=== PATIENT | female | born 1980 | race Hispanic/Latino ===

== ENCOUNTER 2016-06-14 15:43 | Emergency (ER) | payer MEDICAID ==
[2016-06-14 15:44] VITALS: BMI 35.7
[2016-06-14 16:44] VITALS: RESP 18
[2016-06-14] MEDS ORDERED: Sodium Chloride 0.9% 1,000 ML IV ONE (17:02)
[2016-06-14] MEDS ORDERED: Vancomycin 1 gm/NS 200 ml 200 ML IVPB STA (17:03)
[2016-06-14] MEDS ORDERED: Silver Sulfadiazine 1% Cream (20 gm) TOP STA (17:03)
--- NOTE | 2016-06-14 17:05 | C.PDOC ---
History Of Present Illness 35 yr old female presents to the ER for evaluation of a thermal burn to the left elbow sustained 10 days ago. Patient states she "touched a radiator", has been applying silvadene cream at home with no improvement. Patient denies fever , chills, chest pain, SOB, nausea, vomiting, Left arm weakness, sensory or vascular deficits. AMbulate to ED for evaluation, appear in pain. Time Seen by Provider: 06/14/16 16:50 Chief Complaint (Nursing): Burn History Per: Patient History/Exam Limitations: no limitations Injury Occurred (Timing): Days Ago: (10) Type Of Burn (Context): Radiator Past Medical History Reviewed: Historical Data, Nursing Documentation, Vital Signs Vital Signs: Last Vital Signs Temp 97.6 F 06/14/16 20:03 Pulse 80 06/14/16 20:03 Resp 18 06/14/16 20:03 BP 110/75 06/14/16 20:03 Pulse Ox 100 06/14/16 21:00 - Medical History PMH: Anxiety, Asthma, Back Problems, Bronchitis, Depression, Pneumonia, Post Traumatic Stress Disorder, Seizures - [facility] Procedures APPLICATION OF SPLINT (09/19/14) VACCINATION NEC (11/04/13) Family History: States: No Known Family Hx - Social History Hx Tobacco Use: Yes Hx Alcohol Use: No Hx Substance Use: No - Immunization History Hx Tetanus Toxoid Vaccination: No Hx Influenza Vaccination: Yes Hx Pneumococcal Vaccination: No Review Of Systems Except As Marked, All Systems Reviewed And Found Negative. Constitutional: Negative for: Fever, Chills Cardiovascular: Negative for: Chest Pain Respiratory: Negative for: Shortness of Breath Gastrointestinal: Negative for: Nausea, Vomiting Musculoskeletal: Negative for: Shoulder Pain, Arm Pain, Back Pain Skin: Positive for: Other (Thermal burn to the left elbow.) Neurological: Negative for: Weakness, Numbness Physical Exam - Physical Exam Appears: Well, No Acute Distress Skin: Normal Color, Warm, Dry, No Rash, Other (Left distal humerus over triceps area linear open wounds 8-9 cm length covered yellowish scab with surrounding erythema. NO peroximal streaking.) Eye(s): bilateral: Normal Inspection Nose: Normal, No Discharge Oral Mucosa: Moist Throat: Normal, No Erythema, No Exudate, No Drooling Neck: Normal, Normal ROM, Supple Cardiovascular: Rhythm Regular Respiratory: Normal Breath Sounds Gastrointestinal/Abdominal: Normal Exam, Soft, No Tenderness, No Distention, No Guarding Back: Normal Inspection, No CVA Tenderness Extremity: Normal ROM (mild discmfort Right elbow flexion/extension due to pain) , Tenderness (Right elbow with mild joint effusion. Warmth to touch.), No Deformity Extremity: Bilateral: Atraumatic Neurological/Psych: Oriented x3, Normal Speech, Normal Motor, Normal Sensation, Normal Reflexes ED Course And Treatment - Laboratory Results Result Diagrams: 06/14/16 17:53 06/14/16 17:53 Lab Interpretation: No Acute Changes O2 Sat by Pulse Oximetry: 100 Pulse Ox Interpretation: Normal Medical Decision Making Medical Decision Making: PLAN: * CBC * HCG Urine * Urinalysis * Silvadene TOP * Tetanus IM * Toradol IVP * Vancomycin IVPB * Sodium Chloride IV ED OBSERVATION Discharge: Yes Date of observation admission: 06/14/16 Time of observation admission: 17:00 - Observation admission statement Patient is being placed in observation because:: Left upper arm thermal burn, open wound, cellulitis - Goals of Observation Goals of observation are:: Diagnostics, analgesics, abx tx - Progress Note Progress Note: 06/14/16 At 17:10, pt resting comfortable in bed, not in any apparent distress. Pt was evaluated by ED attending. ABx, hydration, blood work pending. At 19:03, blood work review, no leukocytosis or any other acute abnormalities noted. Vancomycin, Zosyn- in process. pt tolerate well. At 20:58, pt reports moderate improvement in pain. AFebrile, hemodynamicalys table. LUE: FAROM, no neurovascular deficits. Neurologicaly intact. Pt was offered admission due to open wound s/p thermal burn second degrees, cellulitis. Pt refused admission at present time, preferred to F/U with PMD tomorrow and Burn center. Case discussed with pt's PMD and outpt f/u scheduled. Pt was advised on course of ds, wound care.Pt advised on sign of septic joint. Ref. to F/U with [facility] in 1-2 days and PMD for re-evaluation and further tx. Return if any worsening or new changes. Disposition Counseled Patient/Family Regarding: Studies Performed, Diagnosis, Need For Followup, Rx Given - Disposition Referrals: Priti Hansen MD [Staff Provider] - Disposition: HOME/ ROUTINE Disposition Time: 21:00 Condition: STABLE Additional Instructions: FOLLOW UP WITH [facility] IN 1-2 DAYS FOR RE-EVALUATION AND FURTHER TREATMENT. CHANGE XEROFORM DRESSING DAILY TAKE ANTIBIOTIC PRESCRIBED FOLLOW UP WITH PMD IN 2-3 DAYS FOR RE-EVALUATION WELL. [facility] [address], [place] [phone] [facility] [address] [id number] Prescriptions: Clindamycin [Cleocin] 300 mg PO Q6 #28 cap traMADol [Ultram] 50 mg PO TID #7 tab Instructions: Cellulitis (ED), Second Degree Burn (ED) - Clinical Impression Clinical Impression: Second degree burn, Cellulitis - PA / GIRL FRIDAY / Resident Statement MD/DO has reviewed & agrees with the documentation as recorded. - Scribe Statement The provider has reviewed the documentation as recorded by the Scribe Trudy Choi All medical record entries made by the Scribe were at my direction and personally dictated by me. I have reviewed the chart and agree that the record accurately reflects my personal performance of the history, physical exam, medical decision making, and the department course for this patient. I have also personally directed, reviewed, and agree with the discharge instructions and disposition.
[2016-06-14 18:01] LABS: CHLORIDE 95 mmol/L (98-107); POTASSIUM 3.4 mmol/L (3.6-5.2); SODIUM 137 mmol/L (132-148)
[2016-06-14 18:04] LABS: BLOOD UREA NITROGEN 17 mg/dL (7-17); CARBON DIOXIDE 26 mmol/L (22-30); GFR AFRICAN-AMERICAN > 60; GLUCOSE,RANDOM 65 mg/dL (65-105)
[2016-06-14 18:05] LABS: BASO # 0.1 K/uL (0.0-0.2); BASO % 0.5 % (0.0-2.0); CALCIUM 9.1 mg/dl (8.6-10.4); EOS # 0.3 K/uL (0.0-0.7); EOS % 2.4 % (0.0-4.0); HEMATOCRIT 38.3 % (34.0-47.0); LYMPH % 27.3 % (20.0-40.0); MEAN CELL VOLUME 89.4 fL (81.0-99.0); MEAN CORPUSCULAR HEMOGLOBIN 29.4 pg (27.0-31.0); MEAN CORPUSCULAR HGB CONC 32.9 g/dL (33.0-37.0); MEAN PLATELET VOLUME 8.7 fL (7.2-11.7); MONO # 0.8 K/uL (0.0-0.8); MONO % 7.2 % (0.0-10.0); RED CELL DISTRIBUTION WIDTH 14.3 % (11.5-14.5); WHITE BLOOD COUNT 11.1 K/uL (4.8-10.8)
[2016-06-14 18:09] LABS: RBC URINE 3 /hpf (0-3); URINE BACTERIA RARE (<OCC); URINE BILIRUBIN NEGATIVE (NEGATIVE); URINE BLOOD 1+ (NEGATIVE); URINE COLOR Yellow (YELLOW); URINE GLUCOSE (UA) NORMAL (Normal); URINE KETONE NEGATIVE (NEGATIVE); URINE LEUKOCYTE ESTERASE 2+ Leu/uL (Negative); URINE PROTEIN NEGATIVE (NEGATIVE); URINE UROBILINOGEN NORMAL mg/dL (0.2-1.0); WBC URINE 7 /hpf (0-5)
[2016-06-14] MEDS ORDERED: Silver Sulfadiazine 1% Cream (20 gm) ONE (18:38)
[2016-06-14 21:25] VITALS: BP 124/72; PULSE 75; TEMP 98.2
[2016-06-14 21:38] VITALS: O2SAT 100
== END 2016-06-14 21:25 | disposition home or self-care (01) ==
LOC: C.ER 15:43
DX: T22.232A Burn of second degree of left upper arm, initial encounter (principal); X16.XXXA Contact with hot heating appliances, radiators and pipes, initial encounter; L03.114 Cellulitis of left upper limb
CPT/HCPCS: 80048; 81001; 84703; 85025; 87040; 90471; 90715; 96361; 96365; 96375; 99285; J1885; J2270; J3370; J7040

== ENCOUNTER 2016-08-31 19:57 | Emergency (ER) | payer MEDICAID ==
[2016-08-31 19:57] VITALS: BMI 35.7
[2016-08-31 20:25] VITALS: TEMP 98.2
--- NOTE | 2016-08-31 20:38 | C.PDOC ---
History Of Present Illness 35 y/o female presents to the ED with complaints of foul smelling urine worsening over the past week with associated increased frequency and dysuria. Pt also notes hematuria today. Denies fever, chills, nausea, vomiting or any other complaints. Time Seen by Provider: 08/31/16 20:27 Chief Complaint (Nursing): Female Genitourinary History Per: Patient History/Exam Limitations: no limitations Onset/Duration Of Symptoms: Days Current Symptoms Are (Timing): Worse Severity: Moderate Associated Symptoms: Urinary Symptoms. denies: Fever, Chills, Nausea, Vomiting Alleviating Factors: None Recent travel outside of the [place]: No Abnormal Vaginal Bleeding: No Past Medical History Reviewed: Historical Data, Nursing Documentation, Vital Signs Vital Signs: Last Vital Signs Temp 98.2 F 08/31/16 20:18 Pulse 102 H 08/31/16 20:18 Resp 20 08/31/16 20:18 BP 118/87 08/31/16 20:18 Pulse Ox 98 08/31/16 21:09 - Medical History PMH: Anxiety, Asthma, Back Problems, Bronchitis, Depression, Pneumonia, Post Traumatic Stress Disorder, Seizures - [facility] Procedures APPLICATION OF SPLINT (09/19/14) VACCINATION NEC (11/04/13) Family History: States: Unknown Family Hx - Social History Hx Tobacco Use: Yes Hx Alcohol Use: No Hx Substance Use: No - Immunization History Hx Tetanus Toxoid Vaccination: No Hx Influenza Vaccination: Yes Hx Pneumococcal Vaccination: No Review Of Systems Constitutional: Negative for: Fever, Chills Gastrointestinal: Negative for: Nausea, Vomiting Genitourinary: Positive for: Dysuria, Frequency, Hematuria, Other (foul smelling urine) Physical Exam - Physical Exam Appears: Non-toxic, No Acute Distress Skin: Warm, Dry, No Rash Head: Atraumatic, Normacephalic Neck: Supple Chest: Symmetrical Cardiovascular: Rhythm Regular, No Murmur Respiratory: No Rales, No Rhonchi, No Wheezing Gastrointestinal/Abdominal: Soft, Tenderness (mild suprapubic), No Guarding, No Rebound Extremity: Bilateral: Atraumatic Neurological/Psych: Oriented x3, Normal Speech ED Course And Treatment - Laboratory Results Result Diagrams: 08/31/16 22:03 O2 Sat by Pulse Oximetry: 98 (room air) Pulse Ox Interpretation: Normal Disposition Counseled Patient/Family Regarding: Studies Performed, Diagnosis, Need For Followup, Rx Given - Disposition Referrals: Priti Hansen MD [Staff Provider] - Disposition: HOME/ ROUTINE Disposition Time: 20:38 Condition: FAIR Prescriptions: Nitrofurantoin Macrocrystals [Macrobid] 1 cap PO BID #14 cap traMADol [Ultram] 50 mg PO TID PRN #12 tab PRN Reason: Pain, Severe (8-10) Instructions: Urinary Tract Infection in Women (DC) - Clinical Impression Clinical Impression: UTI (urinary tract infection) - Scribe Statement The provider has reviewed the documentation as recorded by the Kendal Navarro Provider Attestation: All medical record entries made by the Kendal were at my direction and personally dictated by me. I have reviewed the chart and agree that the record accurately reflects my personal performance of the history, physical exam, medical decision making, and the department course for this patient. I have also personally directed, reviewed, and agree with the discharge instructions and disposition.
[2016-08-31 21:15] LABS: RBC URINE 2422 /hpf (0-3); URINE BACTERIA MOD (<OCC); URINE BILIRUBIN NEGATIVE (NEGATIVE); URINE BLOOD 3+ (NEGATIVE); URINE GLUCOSE (UA) NORMAL (Normal); URINE KETONE NEGATIVE (NEGATIVE); URINE LEUKOCYTE ESTERASE 3+ Leu/uL (Negative); URINE PROTEIN 2+ mg/dL (NEGATIVE); URINE UROBILINOGEN NORMAL mg/dL (0.2-1.0); WBC CLUMPS MANY /hpf; WBC URINE 769 /hpf (0-5)
[2016-08-31 21:29] LABS: URINE COLOR YELLOW (YELLOW)
[2016-08-31] MEDS ORDERED: Sodium Chloride 0.9% 1,000 ML IV ONE (21:40)
[2016-08-31] MEDS ORDERED: Sodium Chloride 0.9% 1,000 ML ONE (21:45)
[2016-08-31] MEDS ORDERED: Piperacillin/Tazobact 3.375 GM in Sodium Chloride 100 ML IVPB SCH (21:45)
[2016-08-31] MEDS ORDERED: Piperacillin/Tazobact 3.375 gm 100 ML IVPB ONE (21:46)
[2016-08-31 22:23] LABS: CHLORIDE 109 mmol/L (98-107)
[2016-08-31 22:24] LABS: POTASSIUM 3.9 mmol/L (3.6-5.2); SODIUM 140 mmol/L (132-148)
[2016-08-31 22:26] LABS: GFR AFRICAN-AMERICAN > 60
[2016-08-31 22:27] LABS: BLOOD UREA NITROGEN 15 mg/dL (7-17); CALCIUM 8.8 mg/dl (8.6-10.4); CARBON DIOXIDE 19 mmol/L (22-30); GLUCOSE,RANDOM 77 mg/dL (65-105)
[2016-08-31 22:45] LABS: BASO # 0.1 K/uL (0.0-0.2); BASO % 0.6 % (0.0-2.0); EOS # 0.5 K/uL (0.0-0.7); EOS % 4.1 % (0.0-4.0); HEMATOCRIT 38.8 % (34.0-47.0); LYMPH # 4.2 K/uL (1.0-4.3); LYMPH % 37.1 % (20.0-40.0); MEAN CORPUSCULAR HEMOGLOBIN 30.1 pg (27.0-31.0); MEAN CORPUSCULAR HGB CONC 32.8 g/dL (33.0-37.0); MEAN PLATELET VOLUME 9.5 fL (7.2-11.7); MONO # 0.7 K/uL (0.0-0.8); MONO % 6.1 % (0.0-10.0); NRBC % 0.1 % (0.0-2.0); RED CELL DISTRIBUTION WIDTH 14.7 % (11.5-14.5); WHITE BLOOD COUNT 11.3 K/uL (4.8-10.8)
[2016-08-31 22:48] LABS: MEAN CELL VOLUME 91.9 fL (81.0-99.0)
[2016-08-31 23:34] VITALS: BP 137/81; PULSE 71; RESP 18; O2SAT 99
== END 2016-08-31 23:34 | disposition home or self-care (01) ==
LOC: C.ER 19:57
DX: N39.0 Urinary tract infection, site not specified (principal)
CPT/HCPCS: 80048; 81001; 84703; 85025; 87086; 96365; 96375; 99284; J1885; J2543; J7040; J7050

== ENCOUNTER 2016-09-12 12:38 | Emergency (ER) | payer MEDICAID ==
[2016-09-12 12:39] VITALS: BMI 35.7
[2016-09-12 12:49] VITALS: RESP 18
--- NOTE | 2016-09-12 13:43 | C.PDOC ---
History Of Present Illness Patient is a 35 y/o female, whose PMHx includes spinal stenosis, and degenerative disc disease (being seen by pain management), presents to the ED for evaluation of generalized weakness, and back pain radiating down hips, and feet. Patient denies any numbness, or tingling sensation. Patient reports taking Tylenol with Codeine with no relief. Patient states that she was recently treated with Macrobid for UTI, and reports having similar symptoms of urinary frequency, and dysuria. Otherwise, denies any saddle anesthesia, urinary retention, nausea, vomiting, abdominal pain, fever, chills, or any other associated symptoms at this time. Time Seen by Provider: 09/12/16 12:53 Chief Complaint (Nursing): Weakness/Neurological Deficit History Per: Patient History/Exam Limitations: no limitations Current Symptoms Are (Timing): Still Present Recent travel outside of the [place]: No Additional History Per: Patient Past Medical History Reviewed: Historical Data, Nursing Documentation, Vital Signs Vital Signs: Last Vital Signs Temp 98.3 F 09/12/16 12:48 Pulse 108 H 09/12/16 12:48 Resp 18 09/12/16 12:48 BP 144/77 09/12/16 12:48 Pulse Ox 96 09/12/16 14:02 - Medical History PMH: Anxiety, Asthma, Back Problems, Bronchitis, Depression, Pneumonia, Post Traumatic Stress Disorder, Seizures Denies: Diabetes, Hepatitis, HIV, HTN, Sexually Transmitted Disease - [facility] Procedures APPLICATION OF SPLINT (09/19/14) VACCINATION NEC (11/04/13) Family History: States: Unknown Family Hx - Social History Hx Tobacco Use: Yes Hx Alcohol Use: No Hx Substance Use: No - Immunization History Hx Tetanus Toxoid Vaccination: No Hx Influenza Vaccination: Yes Hx Pneumococcal Vaccination: No Review Of Systems Except As Marked, All Systems Reviewed And Found Negative. Constitutional: Positive for: Weakness. Negative for: Fever, Chills Cardiovascular: Negative for: Chest Pain, Palpitations Respiratory: Negative for: Shortness of Breath Gastrointestinal: Negative for: Nausea, Vomiting, Abdominal Pain Genitourinary: Positive for: Dysuria, Frequency. Negative for: Hematuria Musculoskeletal: Positive for: Back Pain Neurological: Negative for: Numbness, Headache, Dizziness Physical Exam - Physical Exam Appears: Non-toxic, No Acute Distress Skin: Normal Color, Warm, Dry Head: Atraumatic, Normacephalic Eye(s): bilateral: Normal Inspection, EOMI Neck: Normal ROM, Supple Chest: Symmetrical, No Tenderness Cardiovascular: Rhythm Regular, No Murmur Respiratory: Normal Breath Sounds, No Accessory Muscle Use, No Rales, No Rhonchi , No Wheezing Gastrointestinal/Abdominal: Soft, No Tenderness Back: No CVA Tenderness, Vertebral Tenderness (lumbar, thoracic), No Paraspinal Tenderness Extremity: Normal ROM, No Tenderness, No Deformity Extremity: Bilateral: Atraumatic Neurological/Psych: Oriented x3, Normal Speech, Normal Cognition, Normal Motor, Normal Sensation ED Course And Treatment - Laboratory Results Lab Interpretation: Abnormal (Urine with WBC 374 and 3+ leukocyte esterase. Moderate bacteria present but also showing 36 squamous epith. as well.) O2 Sat by Pulse Oximetry: 96 (on RA) Pulse Ox Interpretation: Normal Progress Note: Labs ordered and reviewed. Patient was given Morphine IM in the ER. Reevaluation Time: 14:15 Reassessment Condition: Improved (after IM Morphine.) Disposition - Disposition Referrals: [facility] [Outside] Disposition: HOME/ ROUTINE Disposition Time: 14:15 Condition: IMPROVED Additional Instructions: Encourage plenty of fluids. Follow up with your pain management doctor. Prescriptions: Phenazopyridine [Pyridium] 200 mg PO TID PRN #7 tab PRN Reason: Urinary Discomt Sulfamethoxazole/Trimethoprim [Bactrim DS 800 mg-160 mg] 1 tab PO BID #14 tab Instructions: Urinary Tract Infection in Women (ED), Chronic Pain (ED) - Clinical Impression Clinical Impression: UTI (urinary tract infection), Chronic low back pain - Scribe Statement The provider has reviewed the documentation as recorded by the Kendal Kruger All medical record entries made by the Kendal were at my direction and personally dictated by me. I have reviewed the chart and agree that the record accurately reflects my personal performance of the history, physical exam, medical decision making, and the department course for this patient. I have also personally directed, reviewed, and agree with the discharge instructions and disposition.
[2016-09-12 13:50] LABS: SQUAMOUS EPITHIAL 36 /hpf (0-5); URINE BACTERIA RARE (<OCC); URINE BILIRUBIN NEGATIVE (NEGATIVE); URINE BLOOD 2+ (NEGATIVE); URINE CLARITY Hazy (Clear); URINE COLOR Yellow (YELLOW); URINE GLUCOSE (UA) NORMAL (Normal); URINE LEUKOCYTE ESTERASE 3+ Leu/uL (Negative); URINE NITRATE NEGATIVE (NEGATIVE); URINE PROTEIN 2+ mg/dL (NEGATIVE); URINE UROBILINOGEN NORMAL mg/dL (0.2-1.0)
[2016-09-12 15:03] VITALS: BP 140/66; PULSE 88; TEMP 98; O2SAT 97
== END 2016-09-12 15:02 | disposition home or self-care (01) ==
LOC: C.ER 12:38
DX: N39.0 Urinary tract infection, site not specified (principal); G89.29 Other chronic pain; M54.5 Low back pain
CPT/HCPCS: 81001; 87086; 87181; 96372; 99285; J2270

== ENCOUNTER 2016-09-24 10:10 | Emergency (ER) | payer MEDICAID ==
[2016-09-24 10:15] VITALS: BMI 39.4
--- NOTE | 2016-09-24 10:59 | C.PDOC ---
Time Seen by Provider: 09/24/16 10:27 Chief Complaint (Nursing): Chest Pain Past Medical History Vital Signs: Last Vital Signs Temp 98.1 F 09/24/16 10:15 Pulse 92 H 09/24/16 10:24 Resp 17 09/24/16 10:24 BP 141/60 09/24/16 10:24 Pulse Ox 97 09/24/16 10:24 - Medical History PMH: Anxiety, Asthma, Back Problems, Bronchitis, Depression, Pneumonia, Post Traumatic Stress Disorder, Seizures Denies: Diabetes, Hepatitis, HIV, HTN, Sexually Transmitted Disease - [facility] Procedures APPLICATION OF SPLINT (09/19/14) VACCINATION NEC (11/04/13) Family History: States: Unknown Family Hx - Social History Hx Tobacco Use: Yes Hx Alcohol Use: No Hx Substance Use: No (Past use of marijuana) - Immunization History Hx Tetanus Toxoid Vaccination: Yes (06/2016) Hx Influenza Vaccination: No Hx Pneumococcal Vaccination: No ED Course And Treatment O2 Sat by Pulse Oximetry: 97 Progress - Data Reviewed Data Reviewed: Lab, Diagnostic imaging, Old records
--- NOTE | 2016-09-24 11:01 | C.PDOC ---
History Of Present Illness 35 Y/O FEMALE C/O WORSENING CHEST TIGHTNESS, SOB, COUGHING, CONGESTION FOR 5 DAYS. PT STATES SHE SAW HER PMD, DR. LAM, ON 09/20/16 (4 DAYS AGO) GIVEN AUGMENTIN AND PREDNISONE, LAST DOSE THIS MORNING. PATIENT GIVEN OUTPATIENT RX FOR CHEST X-RAY BUT HAS NOT GOTTEN ONE. HOLLEY RELIEF WITH NEBS AT HOME. +SMOKING. PT ALSO C/O PERSISTENT LEFT HIP PAIN, S//P FALL ON 09/12, EVALUATED IN ER BUT NO X -RAYS DONE. STATES PAIN WORSE WHEN SHE COUGHS, RADIATES DOWN HER LEFT LEG. PT STATES SHE IS WALKING WITH A LIMP. Time Seen by Provider: 09/24/16 10:27 Chief Complaint (Nursing): Chest Pain History Per: Patient History/Exam Limitations: no limitations Onset/Duration Of Symptoms: Days Current Symptoms Are (Timing): Still Present Reports Recently: Treated By A Physician Recent travel outside of the [place]: No Past Medical History Reviewed: Historical Data, Nursing Documentation, Vital Signs Vital Signs: Last Vital Signs Temp 98.1 F 09/24/16 10:15 Pulse 97 H 09/24/16 12:35 Resp 188 H 09/24/16 12:35 BP 150/54 L 09/24/16 12:35 Pulse Ox 97 09/24/16 12:47 - Medical History PMH: Anxiety, Asthma, Back Problems, Bronchitis, Depression, Pneumonia, Post Traumatic Stress Disorder, Seizures - [facility] Procedures APPLICATION OF SPLINT (09/19/14) VACCINATION NEC (11/04/13) Family History: States: Unknown Family Hx - Social History Hx Tobacco Use: Yes Hx Alcohol Use: No Hx Substance Use: No (Past use of marijuana) - Immunization History Hx Tetanus Toxoid Vaccination: Yes (06/2016) Hx Influenza Vaccination: No Hx Pneumococcal Vaccination: No Review Of Systems Except As Marked, All Systems Reviewed And Found Negative. Constitutional: Negative for: Fever, Chills ENT: Negative for: Throat Pain Cardiovascular: Negative for: Chest Pain, Palpitations Respiratory: Positive for: Cough, Shortness of Breath, Wheezing Musculoskeletal: Positive for: Other (HIP PAIN, LEFT) Skin: Negative for: Rash Neurological: Negative for: Weakness, Numbness, Headache, Dizziness Physical Exam - Physical Exam Appears: Non-toxic, No Acute Distress Skin: Normal Color, Warm, Dry Head: Atraumatic, Normacephalic Chest: Symmetrical Cardiovascular: Rhythm Regular Respiratory: No Rales, Other (TACHYPNEIC, RETRACTING, BRONCHEAL CONESTION W/ SCATTERED EXPIRATORY WHEEZING, ACTIVE NON-PRODUCTIVE COUGH) Gastrointestinal/Abdominal: Soft, No Tenderness, No Guarding, No Rebound Back: Normal Inspection Extremity: Normal ROM, No Pedal Edema, Capillary Refill (< 2 SEC.), No Deformity Neurological/Psych: Oriented x3, Normal Speech, Normal Cognition, Normal Motor, Normal Sensation ED Course And Treatment - Laboratory Results Result Diagrams: 09/24/16 11:38 09/24/16 11:38 ECG: Interpreted By Me ECG Rhythm: Sinus Rhythm ECG Interpretation: Normal Rate From EC (BPM) O2 Sat by Pulse Oximetry: 97 (RA) Pulse Ox Interpretation: Normal - Radiology CXR: Interpreted by Me CXR Interpretation: Yes: No Acute Disease - Other Rad L HIP X-Ray: Interpreted by Me (NEG) Progress - Re-Evaluation Re-evaluation Note: 09/24/16 12:13 ucx 7/2 +PROTEUS. SENSITIVITY REVIEWED. 09/24/16 13:41 PT FEELS BETTER REQUESTING DC. ADVISED TAKE NEW ABX FOR UTI, COMPLETE CURRENT AUGMENTIN PRESCRIBED, FU PMD - Data Reviewed Data Reviewed: Lab, Diagnostic imaging, Old records - Continuity of Care Discussed patient case with:: Patient Disposition Counseled Patient/Family Regarding: Studies Performed, Diagnosis, Need For Followup, Rx Given - Disposition Referrals: YOUR,PMD [Other] Disposition: HOME/ ROUTINE Disposition Time: 13:42 Condition: IMPROVED Prescriptions: Acetaminophen/Codeine [Tylenol/Codeine 300 MG/30 MG] 2 tab PO Q6H #20 tab Sulfamethoxazole/Trimethoprim [Bactrim DS 800 mg-160 mg] 1 tab PO BID #14 tab Instructions: Acute Bronchitis (ED), Urinary Tract Infection in Women (ED) - Clinical Impression Clinical Impression: Urine culture positive, UTI (urinary tract infection), Hip pain, Bronchitis - Scribe Statement The provider has reviewed the documentation as recorded by the Kendal THRASHER Provider Attestation: All medical record entries made by the Kendal were at my direction and personally dictated by me. I have reviewed the chart and agree that the record accurately reflects my personal performance of the history, physical exam, medical decision making, and the department course for this patient. I have also personally directed, reviewed, and agree with the discharge instructions and disposition.
[2016-09-24] MEDS: Albuterol-Ipratrop 3 mg / 0.5 (3 ml) UD IH SCH ×3 (11:25→11:55)
[2016-09-24] MEDS ORDERED: Albuterol-Ipratrop 3 mg / 0.5 (3 ml) UD ONE ×2 (11:33→11:52)
[2016-09-24 11:42] LABS: SQUAMOUS EPITHIAL 17 /hpf (0-5); URINE BACTERIA RARE (<OCC); URINE BILIRUBIN NEGATIVE (NEGATIVE); URINE BLOOD 1+ (NEGATIVE); URINE CLARITY Hazy (Clear); URINE COLOR Yellow (YELLOW); URINE GLUCOSE (UA) NORMAL (Normal); URINE LEUKOCYTE ESTERASE 3+ Leu/uL (Negative); URINE NITRATE NEGATIVE (NEGATIVE); URINE PROTEIN NEGATIVE (NEGATIVE); URINE UROBILINOGEN NORMAL mg/dL (0.2-1.0)
[2016-09-24 11:46] LABS: BASO # 0.1 K/uL (0.0-0.2); BASO % 0.7 % (0.0-2.0); EOS # 0.1 K/uL (0.0-0.7); EOS % 0.8 % (0.0-4.0); HEMOGLOBIN 12.6 g/dL (11.0-16.0); LYMPH # 1.9 K/uL (1.0-4.3); LYMPH % 19.2 % (20.0-40.0); MEAN CELL VOLUME 91.4 fL (81.0-99.0); MEAN CORPUSCULAR HEMOGLOBIN 29.4 pg (27.0-31.0); MEAN CORPUSCULAR HGB CONC 32.2 g/dL (33.0-37.0); MEAN PLATELET VOLUME 8.6 fL (7.2-11.7); MONO # 0.5 K/uL (0.0-0.8); MONO % 5.1 % (0.0-10.0); NEUT # 7.4 K/uL (1.8-7.0); NEUT % 74.2 % (50.0-75.0); RBC 4.28 Mil/uL (3.80-5.20); RED CELL DISTRIBUTION WIDTH 14.6 % (11.5-14.5); WHITE BLOOD COUNT 9.9 K/uL (4.8-10.8)
[2016-09-24 12:10] LABS: ALBUMIN 3.9 g/dL (3.5-5.0)
[2016-09-24 12:12] LABS: AST/SGOT 19 U/L (14-36); GFR AFRICAN-AMERICAN > 60; GFR NON-AFRICAN AMERICAN > 60
[2016-09-24 12:13] LABS: ALB/GLOB RATIO 1.2 (1.0-2.1); ALT/SGPT 43 U/L (9-52); BLOOD UREA NITROGEN 18 mg/dL (7-17); CALCIUM 9.3 mg/dl (8.6-10.4)
[2016-09-24 12:22] LABS: B-TYPE NATRIURETIC PEPTIDE 277 pg/mL (0-450)
[2016-09-24] MEDS ORDERED: Oxycodone/Acetaminophen 5/325 mg Tab PO STA (12:51)
--- NOTE | 2016-09-24 13:04 | RAD ---
PROCEDURE: Right hip with pelvis radiograph series HISTORY: PAIN, TRAUMA COMPARISON: None TECHNIQUE: Single frontal view the pelvis been submitted with a right hip frogleg view. FINDINGS: There is no acute fracture dislocation in right hip joint. The pelvic ring appears diffusely intact with no suspicious lytic or blastic changes identified. Sacroiliac joints are unremarkable and the visualized inferior lumbar spine is unremarkable. The sacral arcades appear normal. Local soft tissues are diffusely unremarkable. Pubic symphysis appears intact. IMPRESSION: No acute fracture dislocation. No definite disruption of the pelvic ring.
--- NOTE | 2016-09-24 13:05 | RAD ---
PROCEDURE: CHEST RADIOGRAPH, 1 VIEW HISTORY: SOB, cough COMPARISON: 05/14/2015 FINDINGS: LUNGS: Clear. PLEURA: No pneumothorax or pleural fluid seen. CARDIOVASCULAR: No radiographic findings to suggest acute or significant cardiovascular disease. OSSEOUS STRUCTURES: No significant abnormalities. VISUALIZED UPPER ABDOMEN: Normal. OTHER FINDINGS: None. IMPRESSION: No active disease. No acute/significant interval changes. Concordant results with the preliminary interpretation rendered by the emergency department physician procedure.
[2016-09-24] MEDS ORDERED: Oxycodone/Acetaminophen 5/325 mg Tab ONE (13:23)
[2016-09-24] MEDS ORDERED: Tmp-Smz 800 mg-160 mg DS Tab PO STA (13:44)
[2016-09-24] MEDS ORDERED: Tmp-Smz 800 mg-160 mg DS Tab ONE (13:51)
[2016-09-24 13:59] VITALS: BP 146/92; PULSE 95; RESP 18; TEMP 98.2; O2SAT 96
--- NOTE | 2016-09-27 12:41 | CARD ---
APPROVED REPORT EKG Measurement Heart [id number] <Conclusion> Normal sinus rhythm Normal ECG
== END 2016-09-24 14:01 | disposition home or self-care (01) ==
LOC: C.ER 10:10
DX: J40 Bronchitis, not specified as acute or chronic (principal); N39.0 Urinary tract infection, site not specified; R82.79 Other abnormal findings on microbiological examination of urine; M25.552 Pain in left hip

== ENCOUNTER 2017-02-06 14:51 | Emergency (ER) | payer MEDICAID ==
[2017-02-06 15:12] VITALS: BMI 38.9
[2017-02-06] MEDS ORDERED: Sodium Chloride 0.9% 1,000 ML IV ONE (15:13)
[2017-02-06] MEDS ORDERED: Morphine 4 MG/ML VIAL ONE (15:47)
[2017-02-06] MEDS ORDERED: Sodium Chloride 0.9% 1,000 ML ONE (15:47)
[2017-02-06 15:54] LABS: BASO # 0.1 K/uL (0.0-0.2); BASO % 0.7 % (0.0-2.0); EOS # 0.5 K/uL (0.0-0.7); EOS % 5.4 % (0.0-4.0); HEMATOCRIT 37.1 % (34.0-47.0); LYMPH # 2.9 K/uL (1.0-4.3); LYMPH % 33.5 % (20.0-40.0); MEAN CELL VOLUME 90.3 fL (81.0-99.0); MEAN CORPUSCULAR HEMOGLOBIN 30.6 pg (27.0-31.0); MEAN CORPUSCULAR HGB CONC 33.9 g/dL (33.0-37.0); MEAN PLATELET VOLUME 8.4 fL (7.2-11.7); MONO # 0.5 K/uL (0.0-0.8); RED CELL DISTRIBUTION WIDTH 14.6 % (11.5-14.5); WHITE BLOOD COUNT 8.5 K/uL (4.8-10.8)
[2017-02-06 16:14] LABS: ALKALINE PHOSPHATASE 77 U/L (38-126); ALT/SGPT 29 U/L (9-52); AST/SGOT 17 U/L (14-36); BILIRUBIN,TOTAL 0.3 mg/dL (0.2-1.3); BLOOD UREA NITROGEN 13 mg/dL (7-17); CALCIUM 8.9 mg/dl (8.6-10.4); CARBON DIOXIDE 25 mmol/L (22-30); CHLORIDE 103 mmol/L (98-107); GFR AFRICAN-AMERICAN > 60; GLUCOSE,RANDOM 91 mg/dL (65-105); SODIUM 135 mmol/L (132-148); TOTAL PROTEIN 7.4 g/dL (6.3-8.3)
--- NOTE | 2017-02-06 16:22 | C.PDOC ---
History Of Present Illness 36 yr old female brought via EMS, presents to the ER for evaluation of several seizures over the last few days. Patient reports of 3 seizures today, witnessed by the boyfriend. Patient states they were "absence seizures". Patient states she is supposed to be on Topamax but has ran out for the last several weeks, due to lack of insurance. Patient reports she has a headache, with chronic body pain. Otherwise, patient denies fever, chills, vision changes, nausea, vomiting , weakness or numbness. Neurologist/Pain Management: DR. Decker Time Seen by Provider: 02/06/17 14:58 Chief Complaint (Nursing): Seizure History Per: Patient History/Exam Limitations: no limitations Number Of Seizures: Multiple (3) Past Medical History Reviewed: Historical Data, Nursing Documentation, Vital Signs Vital Signs: Last Vital Signs Temp 98.1 F 02/06/17 17:07 Pulse 86 02/06/17 17:07 Resp 20 02/06/17 17:07 BP 121/68 02/06/17 17:07 Pulse Ox 97 02/06/17 17:07 - Medical History PMH: Anxiety, Asthma, Back Problems, Bipolar Disorder, Bronchitis, Depression, Pneumonia, Post Traumatic Stress Disorder, Seizures - [facility] Procedures APPLICATION OF SPLINT (09/19/14) VACCINATION NEC (11/04/13) Family History: States: No Known Family Hx - Social History Hx Tobacco Use: Yes Hx Alcohol Use: No Hx Substance Use: No (Past use of marijuana) - Immunization History Hx Tetanus Toxoid Vaccination: Yes (06/2016) Hx Influenza Vaccination: No Hx Pneumococcal Vaccination: No Review Of Systems Except As Marked, All Systems Reviewed And Found Negative. Constitutional: Negative for: Fever, Chills Eyes: Negative for: Vision Change Gastrointestinal: Negative for: Nausea, Vomiting Neurological: Positive for: Headache. Negative for: Weakness, Numbness Physical Exam - Physical Exam Appears: Non-toxic, In Acute Distress (Mild pain) Skin: Warm, Dry, No Rash Head: Atraumatic, Normacephalic Eye(s): bilateral: Normal Inspection, PERRL, EOMI Oral Mucosa: Moist Neck: Normal, Normal ROM, Supple Cardiovascular: Rhythm Regular, No Murmur Respiratory: Normal Breath Sounds, No Rales, No Rhonchi, No Stridor, No Wheezing Gastrointestinal/Abdominal: Normal Exam, Soft, No Tenderness, No Guarding, No Rebound Extremity: Normal ROM, No Swelling Neurological/Psych: Oriented x3, Normal Speech, Normal Motor, Normal Sensation ED Course And Treatment - Laboratory Results Result Diagrams: 02/06/17 15:38 02/06/17 15:38 O2 Sat by Pulse Oximetry: 96 (RA) Pulse Ox Interpretation: Normal Progress Note: PLAN: Labs, HCG, Urinalysis, Percocet PO, Topamax PO, Morphine IVP & Sodium Chloride IV. Disposition Counseled Patient/Family Regarding: Studies Performed, Diagnosis, Need For Followup, Rx Given - Disposition Referrals: Priti Hansen MD [Staff Provider] - Casear Decker MD [Medical Doctor] - Disposition: HOME/ ROUTINE Disposition Time: 16:20 Condition: STABLE Additional Instructions: SEGUIR CON DR DECKER DENTRO DE 1 SEMANA USE MEDICAMENTOS PARA LAS CONVULSIONES SEGN SE INDICA VOLVER A ER SI LOS SNTOMAS EMPEORAN Prescriptions: Topiramate [Topamax] 100 mg PO BID #90 tablet Instructions: Recurrent Seizures in Adults (ED) Forms: [employer] ([place]) Print Language: TAMAZIGHT - POA Present On Arrival: None - Clinical Impression Clinical Impression: Seizure, Chronic pain - Scribe Statement The provider has reviewed the documentation as recorded by the Piyushibshazia Choi Provider Attestation: All medical record entries made by the Scribe were at my direction and personally dictated by me. I have reviewed the chart and agree that the record accurately reflects my personal performance of the history, physical exam, medical decision making, and the department course for this patient. I have also personally directed, reviewed, and agree with the discharge instructions and disposition.
[2017-02-06] MEDS ORDERED: Oxycodone/Acetaminophen 5/325 mg Tab PO STA (16:52)
[2017-02-06] MEDS ORDERED: Oxycodone/Acetaminophen 5/325 mg Tab ONE (17:00)
[2017-02-06 17:08] VITALS: BP 121/68; PULSE 86; RESP 20; TEMP 98.1
[2017-02-06 17:19] VITALS: O2SAT 96
== END 2017-02-06 17:08 | disposition home or self-care (01) ==
LOC: C.ER 14:51
DX: G40.909 Epilepsy, unspecified, not intractable, without status epilepticus (principal); G89.29 Other chronic pain
CPT/HCPCS: 80053; 80201; 82550; 82948; 85025; 96374; 99285; J2270; J7040

== ENCOUNTER 2017-04-21 19:25 | Emergency (ER) | payer MEDICAID ==
[2017-04-21 19:25] VITALS: BMI 38.9
[2017-04-21 19:36] VITALS: BP 112/70; PULSE 81; RESP 20; TEMP 98.5; O2SAT 99
[2017-04-21 21:52] LABS: SQUAMOUS EPITHIAL 15 /hpf (0-5); URINE BACTERIA RARE (<OCC); URINE BILIRUBIN NEGATIVE (NEGATIVE); URINE BLOOD 1+ (NEGATIVE); URINE CALCIUM OXALATE CRYSTALS MOD /hpf (<OCC); URINE CLARITY Hazy (Clear); URINE COLOR Yellow (YELLOW); URINE GLUCOSE (UA) NORMAL (Normal); URINE LEUKOCYTE ESTERASE NEG Leu/uL (Negative); URINE NITRATE NEGATIVE (NEGATIVE); URINE PROTEIN NEGATIVE (NEGATIVE); URINE UROBILINOGEN NORMAL mg/dL (0.2-1.0)
--- NOTE | 2017-04-21 22:13 | C.PDOC ---
History Of Present Illness 36 y/o female presents to the ED for evaluation of a crampy, lower abdominal discomfort which began 1 day ago. Patient is currently 11 weeks ; she underwent an outpatient US last week at her APPRAISER TIMBER's office and states the results were unremarkable (no paperwork provided). As per patient and at bedside, patient has history of chronic constipation and has occasional bowel movements every other day. and pt relate high oral intake of food and minimal stool output. Patient has many laxatives at home for her chronic constipation. She denies fever, chills, back pain, vaginal bleeding. Time Seen by Provider: 04/21/17 20:53 Chief Complaint (Nursing): Abdominal Pain History Per: Patient History/Exam Limitations: no limitations Onset/Duration Of Symptoms: Days Current Symptoms Are (Timing): Still Present Location Of Pain/Discomfort: Other (lower abdomen ) Radiation Of Pain To:: None Quality Of Discomfort: Cramping Associated Symptoms: denies: Fever, Chills, Back Pain Additional History Per: Patient Abnormal Vaginal Bleeding: No Past Medical History Reviewed: Historical Data, Nursing Documentation, Vital Signs Vital Signs: Last Vital Signs Temp 98.5 F 04/21/17 19:32 Pulse 81 04/21/17 19:32 Resp 20 04/21/17 19:32 BP 112/70 04/21/17 19:32 Pulse Ox 99 04/21/17 23:42 - Medical History PMH: Anxiety, Asthma, Back Problems, Bipolar Disorder, Bronchitis, Depression, Pneumonia, Post Traumatic Stress Disorder, Seizures Denies: Diabetes, Hepatitis, HIV, HTN, Sexually Transmitted Disease Surgical History: No Surg Hx - [facility] Procedures APPLICATION OF SPLINT (09/19/14) VACCINATION NEC (11/04/13) Family History: States: Unknown Family Hx - Social History Hx Tobacco Use: Yes Hx Alcohol Use: No Hx Substance Use: No (Past use of marijuana) - Immunization History Hx Tetanus Toxoid Vaccination: Yes (06/2016) Hx Influenza Vaccination: No Hx Pneumococcal Vaccination: No Review Of Systems Constitutional: Negative for: Fever, Chills Gastrointestinal: Positive for: Abdominal Pain Physical Exam - Physical Exam Appears: Non-toxic, No Acute Distress, Other (morbidly obese, eating large volumes of food ) Skin: Normal Color, Warm, Dry Head: Atraumatic, Normacephalic Eye(s): bilateral: Normal Inspection Oral Mucosa: Moist Neck: Supple Chest: Symmetrical, No Deformity, No Tenderness Cardiovascular: Rhythm Regular, No Murmur Respiratory: Normal Breath Sounds, No Rales, No Rhonchi, No Wheezing Gastrointestinal/Abdominal: Soft, Tenderness (to left upper quadrant ), No Guarding, No Rebound, Other (dullness throughout abdomen. gravid abdomen consistent with 11 week . no tenderness to suprapubic region ) Extremity: Normal ROM, Capillary Refill (less than 2 seconds ) Neurological/Psych: Oriented x3, Normal Speech, Normal Cognition Gait: Steady ED Course And Treatment O2 Sat by Pulse Oximetry: 99 (on RA) Pulse Ox Interpretation: Normal Progress Note: Patient declines repeat Ultrasound and labwork and requests to be discharged. UA ordered. Patient eloped from the ED at 21:45. UA reviewed, and is clear. No further action required. Medical Decision Making Medical Decision Making: no UTI prob constipation 11 wk preg with normal US 1 wk ago @ 10 weeks. pt declined with informed consent to repeat eval. eloped from ED Disposition Doctor Will See Patient In The: Office Counseled Patient/Family Regarding: Studies Performed, Diagnosis - Disposition Disposition: ELOPEMENT - ER ONLY Disposition Time: 21:45 Condition: GOOD Forms: [facility] (South African) - Clinical Impression Clinical Impression: , Colicky LUQ abdominal pain - Scribe Statement The provider has reviewed the documentation as recorded by the Scribe (Portai Kruger) Provider Attestation: All medical record entries made by the Scribe were at my direction and personally dictated by me. I have reviewed the chart and agree that the record accurately reflects my personal performance of the history, physical exam, medical decision making, and the department course for this patient. I have also personally directed, reviewed, and agree with the discharge instructions and disposition.
== END 2017-04-21 21:47 | disposition left against medical advice (07) ==
LOC: C.ER 19:25
DX: O26.891 Other specified pregnancy related conditions, first trimester (principal); R10.12 Left upper quadrant pain; Z3A.11 11 weeks gestation of pregnancy

== ENCOUNTER 2017-07-01 16:38 | Emergency (ER) | payer MEDICAID ==
[2017-07-01 16:39] VITALS: BMI 38.9
[2017-07-01 16:59] VITALS: RESP 18
[2017-07-01] MEDS ORDERED: Sodium Chloride 0.9% 1,000 ML IV ONE (17:16)
[2017-07-01 18:13] LABS: BASO % 0.3 % (0.0-2.0); EOS # 0.2 K/uL (0.0-0.7); HEMOGLOBIN 10.6 g/dL (11.0-16.0); LYMPH # 1.7 K/uL (1.0-4.3); LYMPH % 16.5 % (20.0-40.0); MEAN CELL VOLUME 92.3 fL (81.0-99.0); MEAN CORPUSCULAR HEMOGLOBIN 31.7 pg (27.0-31.0); MEAN CORPUSCULAR HGB CONC 34.3 g/dL (33.0-37.0); MEAN PLATELET VOLUME 8.5 fL (7.2-11.7); MONO # 0.4 K/uL (0.0-0.8); MONO % 4.3 % (0.0-10.0); NEUT # 7.9 K/uL (1.8-7.0); NEUT % 76.9 % (50.0-75.0); RBC 3.35 Mil/uL (3.80-5.20); RED CELL DISTRIBUTION WIDTH 14.6 % (11.5-14.5); WHITE BLOOD COUNT 10.3 K/uL (4.8-10.8)
--- NOTE | 2017-07-01 18:15 | C.PDOC ---
History Of Present Illness Patient BIBA for evaluation for evaluation after reported seizure at home. Patient states she has h/o seizures that occur "due to stress", takes topamax for headaches. She has PMHx of bipolar disorder, chronic pain (back) seeing pain management, PTSD, pneumonia. Patient states she fell onto her back with the seizure, and currently has back pain. She also states she is currently ; denies abdominal pain, vaginal bleeding. Time Seen by Provider: 07/01/17 17:06 Chief Complaint (Nursing): Seizure History Per: Patient, EMS History/Exam Limitations: no limitations Past Medical History Reviewed: Historical Data, Nursing Documentation, Vital Signs Vital Signs: Last Vital Signs Temp 98.4 F 07/01/17 16:57 Pulse 97 H 07/01/17 16:57 Resp 18 07/01/17 16:57 BP 127/57 L 07/01/17 16:57 Pulse Ox 98 07/01/17 18:22 - Medical History PMH: Anxiety, Asthma, Back Problems, Bipolar Disorder, Bronchitis, Depression, Pneumonia, Post Traumatic Stress Disorder, Seizures - [facility] Procedures APPLICATION OF SPLINT (09/19/14) VACCINATION NEC (11/04/13) Family History: States: No Known Family Hx - Social History Hx Tobacco Use: Yes Hx Alcohol Use: No Hx Substance Use: No (Past use of marijuana) - Immunization History Hx Tetanus Toxoid Vaccination: Yes (06/2016) Hx Influenza Vaccination: No Hx Pneumococcal Vaccination: No Review Of Systems Except As Marked, All Systems Reviewed And Found Negative. Constitutional: Negative for: Fever, Chills Cardiovascular: Negative for: Chest Pain Respiratory: Negative for: Shortness of Breath Gastrointestinal: Negative for: Nausea, Vomiting, Abdominal Pain, Diarrhea Musculoskeletal: Positive for: Back Pain Neurological: Positive for: Seizures. Negative for: Headache, Dizziness Physical Exam - Physical Exam Appears: Well, Non-toxic, In Acute Distress (in mild pain ) Oral Mucosa: Moist Cardiovascular: Rhythm Regular Respiratory: Normal Breath Sounds, No Rales, No Rhonchi, No Wheezing Gastrointestinal/Abdominal: Normal Exam, Bowel Sounds, No Soft, No Tenderness Back: Paraspinal Tenderness (B/L lumbar) ED Course And Treatment - Laboratory Results Result Diagrams: 07/01/17 18:09 07/01/17 18:09 O2 Sat by Pulse Oximetry: 98 (RA) Pulse Ox Interpretation: Normal Progress Note: Blood work, UA, pelvic US ordered. Patient given IV NS bolus, PO Dilaudid for pain. Disposition - Disposition Disposition Time: 19:00 Condition: STABLE Forms: [employer] ([place]) - Clinical Impression Clinical Impression: Seizure, Back pain, Physician Patient Turnover Patient Signed Over To: Camryn Gómez Handoff Comments: pending reassessment, ultrasound
[2017-07-01 18:27] LABS: ALBUMIN 3.4 g/dL (3.5-5.0); ALT/SGPT 21 U/L (9-52); AST/SGOT 17 U/L (14-36); BLOOD UREA NITROGEN 9 mg/dL (7-17); CALCIUM 8.8 mg/dl (8.6-10.4); GFR AFRICAN-AMERICAN > 60; GFR NON-AFRICAN AMERICAN > 60
[2017-07-01] MEDS ORDERED: Sodium Chloride 0.9% 1,000 ML ONE (18:54)
--- NOTE | 2017-07-01 19:57 | US ---
EXAM: US Uterus, Limited EXAM DATE/TIME: Exam ordered 07/01/2017 5:22 PM CLINICAL HISTORY: 36 years old, female; Pain; Other: Pelvic pain; Gestational age or lmp: 11-26-17; ; Additional info: Pelvic pain, S/P fall/seizure TECHNIQUE: Real-time ultrasound of the maternal uterus (limited) with image documentation. COMPARISON: No relevant prior studies available. FINDINGS: Biometry BPD = [5.03 cm]; Estimated Menstrual Age = [21 w 2 d]; Range = [19 V2P-29O0O] HC = [18.83 cm]; Estimated Menstrual Age = [21 w 1 d]; Range = [19 Q1S-47J1Z] AC = [17.09 cm]; Estimated Menstrual Age = [22 w 0 d]; Range = [20 V2Q-43H8J] FL = [3.64 cm]; Estimated Menstrual Age = [21 w 4 d]; Range = [19 Y1T-93Q 2-D] HC/AC Ratio = [1.10] normal 1.06-1.24 EFW = 1 lb. 0 oz. plus or -2 ounces/92.3 percentile Presentation: Vertex Placenta: Posterior and free of the cervical os. No evidence of retroplacental hemorrhage Amniotic fluid: Qualitatively normal Cervix: Closed; 3.4 cm in length. HR =[146 bpm] Survey Incomplete Stomach [Normal] Bladder [Normal] Impression: 1. Single live intrauterine with an estimated menstrual age of 21 weeks and 4 days plus or -1 week and 4 days. 2. Incomplete survey.
[2017-07-01 21:11] LABS: SQUAMOUS EPITHIAL 63 /hpf (0-5); URINE BACTERIA OCC (<OCC); URINE BILIRUBIN NEGATIVE (NEGATIVE); URINE BLOOD 1+ (NEGATIVE); URINE CLARITY Hazy (Clear); URINE COLOR Yellow (YELLOW); URINE GLUCOSE (UA) NORMAL (Normal); URINE LEUKOCYTE ESTERASE 1+ Leu/uL (Negative); URINE PROTEIN NEGATIVE (NEGATIVE); URINE UROBILINOGEN NORMAL mg/dL (0.2-1.0)
[2017-07-01 21:24] VITALS: BP 126/62; PULSE 90; TEMP 98.6; O2SAT 99
== END 2017-07-01 21:54 | disposition home or self-care (01) ==
LOC: C.ER 16:38
DX: O99.352 Diseases of the nervous system complicating pregnancy, second trimester (principal); G40.909 Epilepsy, unspecified, not intractable, without status epilepticus; O23.42 Unspecified infection of urinary tract in pregnancy, second trimester; M54.9 Dorsalgia, unspecified; Z3A.21 21 weeks gestation of pregnancy
CPT/HCPCS: 76815; 80053; 81001; 82948; 84702; 85025; 87086; 96360; 99285; J7040

== ENCOUNTER 2017-08-30 05:27 | Emergency (ER) | payer MEDICAID ==
[2017-08-30 05:27] VITALS: BMI 38.9
[2017-08-30] MEDS ORDERED: Dexamethasone 4 mg/1 ml IVP STA (06:11)
[2017-08-30] MEDS ORDERED: Dexamethasone 4 mg/1 ml ONE (06:17)
--- NOTE | 2017-08-30 06:24 | C.PDOC ---
History Of Present Illness 36 y/o female brought in by ambulance for complaints of SOB, chest tightness, and wheezing, worsened this morning after smoking cigarettes. Patient reports PMHx of asthma, and used inhaler at home without relief. Also complaining of a cough since yesterday. Otherwise denies any fever, chills, nausea, vomiting, or leg pain/swelling. Patient received a nebulizer treatment in the field with some relief. Time Seen by Provider: 08/30/17 06:07 Chief Complaint (Nursing): Respiratory Distress History Per: Patient History/Exam Limitations: no limitations Onset/Duration Of Symptoms: Hrs Current Symptoms Are (Timing): Still Present Past Medical History Reviewed: Historical Data, Nursing Documentation, Vital Signs Vital Signs: Last Vital Signs Temp 97.6 F 08/30/17 05:33 Pulse 85 08/30/17 07:17 Resp 24 08/30/17 07:17 BP 120/52 L 08/30/17 07:17 Pulse Ox 96 08/30/17 07:17 - Medical History PMH: Anxiety, Asthma, Back Problems, Bipolar Disorder, Bronchitis, Depression, Pneumonia, Post Traumatic Stress Disorder, Seizures Denies: Diabetes, Hepatitis, HIV, HTN, Sexually Transmitted Disease - [facility] Procedures APPLICATION OF SPLINT (09/19/14) VACCINATION NEC (11/04/13) Family History: States: Unknown Family Hx - Social History Hx Tobacco Use: Yes Hx Alcohol Use: No Hx Substance Use: No (Past use of marijuana) - Immunization History Hx Tetanus Toxoid Vaccination: Yes (06/2016) Hx Influenza Vaccination: No Hx Pneumococcal Vaccination: No Review Of Systems Constitutional: Negative for: Fever, Chills Cardiovascular: Positive for: Chest Pain (tightness) Respiratory: Positive for: Cough, Shortness of Breath, Wheezing Gastrointestinal: Negative for: Nausea, Vomiting Musculoskeletal: Negative for: Leg Pain Physical Exam - Physical Exam Appears: No Acute Distress Skin: Normal Color, Warm, Dry Head: Atraumatic, Normacephalic Eye(s): bilateral: Normal Inspection, PERRL, EOMI Oral Mucosa: Moist Neck: Normal ROM, Supple Chest: Symmetrical, No Deformity, No Tenderness Cardiovascular: Rhythm Regular, No Murmur Respiratory: No Accessory Muscle Use, No Rales, No Rhonchi, Wheezing (diffuse expiratory wheezes), Other (minimal/decreased air entry; no retractions) Gastrointestinal/Abdominal: Soft, Other (gravid) Back: Normal Inspection, No Vertebral Tenderness Extremity: Bilateral: Atraumatic, Normal Color And Temperature, Normal ROM Pulses: Left Dorsalis Pedis: Normal, Right Dorsalis Pedis: Normal Neurological/Psych: Oriented x3, Normal Speech ED Course And Treatment O2 Sat by Pulse Oximetry: 97 (NC) Pulse Ox Interpretation: Normal Progress Note: Patient treated with duoneb treatments q15 min and IVP Decadron. On reevaluation, Disposition Counseled Patient/Family Regarding: Diagnosis, Need For Followup, Rx Given - Disposition Referrals: Priti Hansen MD [Staff Provider] - Disposition: HOME/ ROUTINE Disposition Time: 07:24 Condition: STABLE Forms: [employer] (Swedish) - Clinical Impression Clinical Impression: Exacerbation of asthma - PA / LEARNING SUPPORT AIDE / Resident Statement MD/DO has reviewed & agrees with the documentation as recorded. - Scribe Statement The provider has reviewed the documentation as recorded by the Scribe (Kristin Galeana) All medical record entries made by the Scribe were at my direction and personally dictated by me. I have reviewed the chart and agree that the record accurately reflects my personal performance of the history, physical exam, medical decision making, and the department course for this patient. I have also personally directed, reviewed, and agree with the discharge instructions and disposition. Physician Patient Turnover Patient Signed Over To: Cecelia Lerma Handoff Comments: For reeval for dispo
[2017-08-30] MEDS: Albuterol-Ipratrop 3 mg / 0.5 (3 ml) UD IH SCH (06:31)
[2017-08-30] MEDS ORDERED: Albuterol-Ipratrop 3 mg / 0.5 (3 ml) UD ONE (06:34)
[2017-08-30 08:58] VITALS: BP 145/78; PULSE 98; RESP 20; TEMP 98; O2SAT 95
== END 2017-08-30 09:04 | disposition home or self-care (01) ==
LOC: C.ER 05:27
DX: J45.901 Unspecified asthma with (acute) exacerbation (principal); Z72.0 Tobacco use
CPT/HCPCS: 96374; 99285; J1100

== ENCOUNTER 2017-09-05 15:18 | Emergency (ER) | payer MEDICAID ==
[2017-09-05 15:19] VITALS: BMI 38.9
[2017-09-05] MEDS ORDERED: Albuterol-Ipratrop 3 mg / 0.5 (3 ml) UD ONE ×3 (15:40→19:28)
[2017-09-05] MEDS ORDERED: Albuterol-Ipratrop 3 mg / 0.5 (3 ml) UD INH STA (15:47)
[2017-09-05] MEDS: Albuterol-Ipratrop 3 mg / 0.5 (3 ml) UD IH SCH (16:37)
[2017-09-05 16:42] LABS: BASO % 0.3 % (0.0-2.0); EOS % 0.3 % (0.0-4.0); HEMOGLOBIN 10.8 g/dL (11.0-16.0); LYMPH # 0.6 K/uL (1.0-4.3); LYMPH % 5.4 % (20.0-40.0); MEAN CELL VOLUME 92.2 fL (81.0-99.0); MEAN CORPUSCULAR HEMOGLOBIN 31.4 pg (27.0-31.0); MEAN CORPUSCULAR HGB CONC 34.1 g/dL (33.0-37.0); MEAN PLATELET VOLUME 8.4 fL (7.2-11.7); MONO # 0.5 K/uL (0.0-0.8); NEUT # 10.6 K/uL (1.8-7.0); NRBC % 0.1 % (0.0-2.0); PLATELET COUNT 254 K/uL (130-400); RBC 3.45 Mil/uL (3.80-5.20); RED CELL DISTRIBUTION WIDTH 13.3 % (11.5-14.5); WHITE BLOOD COUNT 11.8 K/uL (4.8-10.8)
[2017-09-05 16:47] LABS: ALB/GLOB RATIO 1.1 (1.0-2.1); ALBUMIN 3.4 g/dL (3.5-5.0); ALT/SGPT 44 U/L (9-52); AST/SGOT 38 U/L (14-36); BLOOD UREA NITROGEN 4 mg/dL (7-17); CALCIUM 8.6 mg/dl (8.6-10.4); GFR AFRICAN-AMERICAN > 60; GFR NON-AFRICAN AMERICAN > 60
[2017-09-05 16:55] LABS: B-TYPE NATRIURETIC PEPTIDE 307 pg/mL (0-450)
[2017-09-05 17:14] LABS: ANISOCYTOSIS SLIGHT; BANDS 4 % (0-2); LYMPHOCYTE 7 % (20-40); MONOCYTE 9 % (0-10); NEUTROPHIL 80 % (50-75); PLATELET ESTIMATE NORMAL (NORMAL); POIKILOCYTOSIS SLIGHT; TOTAL CELLS COUNTED 100
[2017-09-05 17:15] LABS: HYPOCHROMIC SLIGHT
[2017-09-05 17:39] LABS: SQUAMOUS EPITHIAL 2 /hpf (0-5); URINE BILIRUBIN NEGATIVE (NEGATIVE); URINE BLOOD NEGATIVE (NEGATIVE); URINE CLARITY Clear (Clear); URINE COLOR Yellow (YELLOW); URINE GLUCOSE (UA) NORMAL (Normal); URINE LEUKOCYTE ESTERASE NEG Leu/uL (Negative); URINE PROTEIN NEGATIVE (NEGATIVE)
--- NOTE | 2017-09-05 17:43 | RAD ---
PROCEDURE: CHEST RADIOGRAPH, 1 VIEW HISTORY: SOB, cough, 31 weeks COMPARISON: 09/24/2016 FINDINGS: LUNGS: Clear. PLEURA: No pneumothorax or pleural fluid seen. CARDIOVASCULAR: Normal. OSSEOUS STRUCTURES: No significant abnormalities. VISUALIZED UPPER ABDOMEN: Normal. OTHER FINDINGS: None. IMPRESSION: No active disease. No acute/significant interval changes.
[2017-09-05 17:56] LABS: BARBITURATES, UR NEGATIVE (NEGATIVE); BENZODIAZEPINES, UR NEGATIVE (NEGATIVE); PHENCYCLIDINE, UR NEGATIVE (NEGATIVE)
[2017-09-05 17:58] LABS: OPIATES, UR POSITIVE (NEGATIVE)
[2017-09-05] MEDS ORDERED: Nalbuphine 20 mg/ml Inj (1 ml) IVP STA (18:21)
[2017-09-05] MEDS ORDERED: Azithromycin 500mg/250ML NS 500 MG/250 ML BAG IVPB STA (18:22)
[2017-09-05] MEDS ORDERED: Nalbuphine HCL 10 mg/ml Ampule IVP STA (18:31)
--- NOTE | 2017-09-05 18:44 | C.PDOC ---
Time Seen by Provider: 09/05/17 15:50 Chief Complaint (Nursing): Shortness Of Breath History Per: Patient Onset/Duration Of Symptoms: Days (about 1 week) Current Symptoms Are (Timing): Still Present Exacerbating Factor(s): Coughing Current Respiratory Medications: See Home Med List Severity: Moderate Associated Symptoms: Productive Cough Additional History Per: Prior Records Past Medical History Reviewed: Historical Data, Nursing Documentation, Vital Signs Vital Signs: Last Vital Signs Temp 98.7 F 09/05/17 15:43 Pulse 106 H 09/05/17 18:32 Resp 20 09/05/17 18:32 BP 143/53 L 09/05/17 18:32 Pulse Ox 95 09/05/17 18:32 - Medical History PMH: Anxiety, Asthma, Back Problems, Bipolar Disorder, Bronchitis, Depression, Pneumonia, Post Traumatic Stress Disorder, Seizures Other PMH: Pt is 31 weeks - [facility] Procedures APPLICATION OF SPLINT (09/19/14) VACCINATION NEC (11/04/13) Family History: States: Unknown Family Hx - Social History Hx Tobacco Use: Yes Hx Alcohol Use: No Hx Substance Use: No (Past use of marijuana) - Immunization History Hx Tetanus Toxoid Vaccination: Yes (06/2016) Hx Influenza Vaccination: No Hx Pneumococcal Vaccination: No Review Of Systems Except As Marked, All Systems Reviewed And Found Negative. Constitutional: Negative for: Weakness Respiratory: Positive for: Cough, Shortness of Breath, Wheezing. Negative for: Hemoptysis Gastrointestinal: Negative for: Vomiting, Abdominal Pain Genitourinary: Negative for: Dysuria Musculoskeletal: Positive for: Back Pain (chronic). Negative for: Neck Pain Skin: Negative for: Rash Neurological: Negative for: Weakness, Numbness Physical Exam - Physical Exam Appears: In Acute Distress Skin: Normal Color, Warm, Dry Head: Atraumatic, Normacephalic Eye(s): bilateral: PERRL, EOMI Neck: Normal ROM, Supple Cardiovascular: Rhythm Regular Respiratory: Wheezing Gastrointestinal/Abdominal: Soft, No Tenderness, Other (Gravid) Extremity: Normal ROM Neurological/Psych: Oriented x3, Normal Motor, Normal Sensation ED Course And Treatment - Laboratory Results Result Diagrams: 09/05/17 16:30 09/05/17 16:30 Interpretation Of Abnormal: Left shift ECG: Interpreted By Me, Viewed By Me ECG Rhythm: Sinus Rhythm ECG Interpretation: No Acute Changes Rate From EC O2 Sat by Pulse Oximetry: 95 Pulse Ox Interpretation: Normal - Radiology CXR: Viewed By Me, Read By Radiologist CXR Interpretation: Yes: No Acute Disease Progress Note: Pt is modestly improved, but still wheezing and SOB. - Physician Consult Information Physician Contacted: Priti Hansne (PMD) Outcome Of Conversation: She states that she is out of town. She would like the patient admitting on hospitalist service. Progress - Interventions Interventions:: Observation, Oxygen - Medications Administered Inhaled nebulized: Anticholinergic, Beta-2 agonist Intravenous: Corticosteroid - Data Reviewed Data Reviewed: Lab, Diagnostic imaging, EKG, Old records - Patient Status Patient status: Partially improved - Critical Care Citical Care: Excluding Proc Time Critical Care Time: 60 minutes - Continuity of Care Discussed patient case with:: Patient, ED Nurse, PMD - Patient Plan Patient Plan: Admission Disposition Discussed With : Almas Cuevas Comment: He accepted pt on hospitalist service. Counseled Patient/Family Regarding: Studies Performed, Diagnosis - Disposition Disposition: HOSPITALIZED Disposition Time: 18:47 Condition: FAIR - Clinical Impression Clinical Impression: Status asthmaticus, 31 weeks gestation of
[2017-09-05 19:48] VITALS: BP 145/64; PULSE 117
[2017-09-05 20:03] VITALS: TEMP 98.9
[2017-09-05 20:52] VITALS: RESP 30; O2SAT 92
--- NOTE | 2017-09-06 01:18 | CP.PCM.HP ---
History of Present Illness - History of Present Illness History of Present Illness: CC: "shortness of breath" HPI: 36 year old female with past medical history noted below. Patient states she started feeling short of breath for the past couple of days. She states she feels like it is difficult for her to catch her breath. She has been using her Ventolin pump 2x per day with no relief. She states she came to the ER recently and had albuterol treatment which had her feeling better only for the night. She states she has had a fever of 102 today. She has had vomiting x1 today and diarrhea, sweats and a dry cough. She states she used to go to pain management for her back pain so she had some Oxycodone still at home and she took one pill today for her back pain. During my interview with the patient she stated that she heard morphine and Dilaudid were safe for the baby and if she could have some for her pain. Once it was told to the patient that she could not as it is harmful for the fetus she asked to sign out against medical advice. She was alert and oriented x3. She stated she understood the risks to leave against medical advice but would like to do so. PMD: Dr. sen ACCREDITATION MANAGER: Dr. eileen Gibson (next appointment September) Past Medical History: Grand mal seizures; Scoliosis; lumbar stenosis; herniated disks; cyst in neck; asthma; Past Surgical History: D&C x2 Medications: Ventolin Allergies: Avalox- analphylaxis Family History: Mom - breast cancer - passed age 50 and she also had an NE age 40 Social History: smokes 5 cigarettes per day for 20 years; denies illicit drug use or alcohol use. Lives with . Present on Admission - Present on Admission Any Indicators Present on Admission: No Past Patient History - Infectious Disease Hx of Infectious Diseases: None - Past Social History Smoking Status: Former Smoker - CARDIAC Hx Hypertension: No - PULMONARY Hx Asthma: Yes Hx Bronchitis: Yes Hx Pneumonia: Yes - NEUROLOGICAL Hx Seizures: Yes - HEMATOLOGICAL/ONCOLOGICAL Hx Human Immunodeficiency Virus (HIV): No - INTEGUMENTARY Hx Dermatological Problems: Yes (Hx of "Hidradenitis Suppurativa") - MUSCULOSKELETAL/RHEUMATOLOGICAL Hx Musculoskeletal Disorders: Yes Hx Back Pain: Yes Hx Herniated Disk: Yes Hx Spinal Stenosis: Yes Other/Comment: Scoliosis - GENITOURINARY/GYNECOLOGICAL Hx Sexually Transmitted Disorders: No - PSYCHIATRIC Hx Anxiety: Yes Hx Bipolar Disorder: Yes Hx Depression: Yes Hx Post Traumatic Stress Disorder: Yes Hx Substance Use: No (Past use of marijuana) - SURGICAL HISTORY Hx Surgeries: Yes Other/Comment: removal cysts both ears 2009 - ANESTHESIA Hx Anesthesia: Yes Meds Allergies/Adverse Reactions: Allergies Allergy/AdvReac Type Severity Reaction Status Date / Time moxifloxacin Allergy Verified 09/05/17 15:46 Results - Vital Signs Recent Vital Signs: Last Vital Signs Temp 98.9 F 09/05/17 19:42 Pulse 117 H 09/05/17 19:42 Resp 30 H 09/05/17 20:17 BP 145/64 09/05/17 19:42 Pulse Ox 92 L 09/05/17 20:17 - Labs Result Diagrams: 09/05/17 16:30 09/05/17 16:30 Labs: Laboratory Results - last 24 hr 09/05/17 09/05/17 09/05/17 16:30 16:30 17:20 WBC 11.8 H RBC 3.45 L Hgb 10.8 L Hct 31.8 L MCV 92.2 MCH 31.4 H MCHC 34.1 RDW 13.3 Plt Count 254 MPV 8.4 Neut % (Auto) 90.0 H Lymph % (Auto) 5.4 L Foard % (Auto) 4.0 Eos % (Auto) 0.3 Baso % (Auto) 0.3 Neut # (Auto) 10.6 H Lymph # (Auto) 0.6 L [place] # (Auto) 0.5 Eos # (Auto) 0.0 Baso # (Auto) 0.0 Neutrophils % (Manual) 80 H Band Neutrophils % 4 H Lymphocytes % (Manual) 7 L Monocytes % (Manual) 9 Platelet Estimate Normal Hypochromasia (manual) Slight Poikilocytosis (manual Slight Anisocytosis (manual) Slight Sodium 139 Potassium 3.3 L Chloride 107 Carbon Dioxide 22 Anion Gap 14 BUN 4 L Creatinine 0.4 L Est GFR ( Amer) > 60 Est GFR (Non-Af Amer) > 60 Random Glucose 91 Calcium 8.6 Total Bilirubin 0.6 AST 38 H D ALT 44 Alkaline Phosphatase 148 H D Troponin I < 0.0120 NT-Pro-B Natriuret Pep 307 Total Protein 6.4 Albumin 3.4 L Globulin 3.1 Albumin/Globulin Ratio 1.1 Urine Color Yellow Urine Clarity Clear Urine pH 7.0 Ur Specific [place] 1.013 Urine Protein Negative Urine Glucose (UA) Normal Urine Ketones 2+ H Urine Blood Negative Urine Nitrate Negative Urine Bilirubin Negative Urine Urobilinogen 4.0 H Ur Leukocyte Esterase Neg Urine WBC (Auto) 1 Urine RBC (Auto) 4 H Ur Squamous Epith Cells 2 Urine Opiates Screen Urine Methadone Screen Ur Barbiturates Screen Ur Phencyclidine Scrn Ur Amphetamines Screen U Benzodiazepines Scrn U Oth Cocaine Metabols U Cannabinoids Screen 09/05/17 17:20 WBC RBC Hgb Hct MCV MCH MCHC RDW Plt Count MPV Neut % (Auto) Lymph % (Auto) [place] % (Auto) Eos % (Auto) Baso % (Auto) Neut # (Auto) Lymph # (Auto) [place] # (Auto) Eos # (Auto) Baso # (Auto) Neutrophils % (Manual) Band Neutrophils % Lymphocytes % (Manual) Monocytes % (Manual) Platelet Estimate Hypochromasia (manual) Poikilocytosis (manual Anisocytosis (manual) Sodium Potassium Chloride Carbon Dioxide Anion Gap BUN Creatinine Est GFR ( Amer) Est GFR (Non-Af Amer) Random Glucose Calcium Total Bilirubin AST ALT Alkaline Phosphatase Troponin I NT-Pro-B Natriuret Pep Total Protein Albumin Globulin Albumin/Globulin Ratio Urine Color Urine Clarity Urine pH Ur Specific [place] Urine Protein Urine Glucose (UA) Urine Ketones Urine Blood Urine Nitrate Urine Bilirubin Urine Urobilinogen Ur Leukocyte Esterase Urine WBC (Auto) Urine RBC (Auto) Ur Squamous Epith Cells Urine Opiates Screen Positive H Urine Methadone Screen Negative Ur Barbiturates Screen Negative Ur Phencyclidine Scrn Negative Ur Amphetamines Screen Negative U Benzodiazepines Scrn Negative U Oth Cocaine Metabols Negative U Cannabinoids Screen Negative
--- NOTE | 2017-09-06 19:39 | CARD ---
APPROVED REPORT EKG Measurement Heart [id number] <Conclusion> Normal sinus rhythm Normal ECG
== END 2017-09-05 20:53 | disposition left against medical advice (07) ==
LOC: C.ER 15:18 → UNDOADMIN 18:48 → C.9E 18:48 → UNDODISIN 20:17 → C.ER 20:53
DX: J45.902 Unspecified asthma with status asthmaticus (principal); O26.93 Pregnancy related conditions, unspecified, third trimester; Z3A.31 31 weeks gestation of pregnancy; Z87.891 Personal history of nicotine dependence
CPT/HCPCS: 71045; 80053; 80324; 80345; 80346; 80349; 80353; 80358; 80361; 81001; 83880; 83992; 84484; 85025; 93005; 94640; 96365; 96366; 96375; 99285; J0456; J2930

== ENCOUNTER 2017-09-06 03:15 | Emergency (ER) | payer MEDICAID ==
[2017-09-06 03:15] VITALS: BMI 38.9
[2017-09-06] MEDS ORDERED: Albuterol-Ipratrop 3 mg / 0.5 (3 ml) UD ONE ×5 (03:26→05:58)
[2017-09-06] MEDS ORDERED: Albuterol 0.083% Inhal Sol (2.5 mg/3 mL) UD INH SCH (04:00)
[2017-09-06] MEDS: Albuterol-Ipratrop 3 mg / 0.5 (3 ml) UD IH SCH ×5 (04:01→06:28)
--- NOTE | 2017-09-06 04:12 | C.PDOC ---
History Of Present Illness 36 year old female who is 31 weeks presents to the ER with a complaint of SOB, wheezing, and chest tightness. Patient states she has not had any improvement with her ventolin, she was seen in the ER on 09/05/17 and was admitted for status asthmaticus but signed out AMA. Denies chest pain, abdominal pain, nausea, or vomiting. Time Seen by Provider: 09/06/17 03:36 Chief Complaint (Nursing): Shortness Of Breath History Per: Patient History/Exam Limitations: no limitations Onset/Duration Of Symptoms: Hrs Current Symptoms Are (Timing): Still Present Initiating Event: Other (Not known) Current Respiratory Medications: Other (Ventolin) Associated Symptoms: Other ((+) SOB, Wheezing, Chest tightness (-) Nausea, Vomiting). denies: Chest Pain Recent travel outside of the [place]: No Past Medical History Reviewed: Historical Data, Nursing Documentation, Vital Signs Vital Signs: Last Vital Signs Temp 97.7 F 09/06/17 06:48 Pulse 130 H 09/06/17 06:48 Resp 32 H 09/06/17 06:48 BP 125/52 L 09/06/17 06:48 Pulse Ox 95 09/06/17 06:48 - Medical History PMH: Anxiety, Asthma, Back Problems, Bipolar Disorder, Bronchitis, Depression, Pneumonia, Post Traumatic Stress Disorder, Seizures - [facility] Procedures APPLICATION OF SPLINT (09/19/14) VACCINATION NEC (11/04/13) Family History: States: Unknown Family Hx - Social History Hx Tobacco Use: Yes Hx Alcohol Use: No Hx Substance Use: Yes (Past use of marijuana) - Immunization History Hx Tetanus Toxoid Vaccination: Yes (06/2016) Hx Influenza Vaccination: No Hx Pneumococcal Vaccination: No Review Of Systems Constitutional: Negative for: Fever, Chills Cardiovascular: Negative for: Chest Pain Respiratory: Positive for: Shortness of Breath, Wheezing, Other (Chest tightness ) Gastrointestinal: Negative for: Nausea, Vomiting Physical Exam - Physical Exam Appears: Other (Tachypneic) Skin: Normal Color, Warm, Dry Head: Atraumatic, Normacephalic Eye(s): bilateral: Normal Inspection Oral Mucosa: Moist Neck: Normal, Supple Chest: Symmetrical, No Tenderness Cardiovascular: Rhythm Regular Respiratory: Decreased Breath Sounds, No Accessory Muscle Use, No Rhonchi, Wheezing (Diffuse) Gastrointestinal/Abdominal: Soft, No Tenderness Neurological/Psych: Oriented x3, Normal Speech ED Course And Treatment O2 Sat by Pulse Oximetry: 94 (Room air) Pulse Ox Interpretation: Normal (lower border normal) Progress Note: Albuterol nebulizer and solumedrol IV administered. 5:00 Pt is slowly improving better AE, in no acute distress, but still with diffuse wheezes. 0650: Ptis sleeping comfortably in ED, lungs are CTA with minimally scattered wheezes. Pt is stable for discharge. Understand return precautions and smoking cessation Reevaluation Time: 07:00 Reassessment Condition: Improved Disposition Counseled Patient/Family Regarding: Diagnosis, Need For Followup, Rx Given - Disposition Referrals: Priti Hansen MD [Staff Provider] - Disposition: HOME/ ROUTINE Disposition Time: 06:58 Condition: STABLE Additional Instructions: Increase fluids Use nebulizer treatment Take prednisone as prescribed [place] uo with POMD or CB Return to RR if worse Prescriptions: Albuterol HFA [Ventolin HFA 90 mcg/actuation (8 g)] 2 puff IH [id number] #1 inhaler Albuterol 0.083% [Albuterol 0.083% Inhal [place]rie (2.5 mg/3 ml) UD] 2.5 mg IH TID # 100 neb Mask, Face [Nebulizer Aerosol Mask Adult] 1 dev XX PRN PRN #1 dev PRN Reason: Wheezing Nebulizer [Aerosol Therapy Nebulizer] 1 dev NEB PRN PRN #1 dev PRN Reason: Cough And Congestion predniSONE [Prednisone] 40 mg PO DAILY #8 tab Instructions: Asthma, Adult (DC) Forms: [employer] ([place]) - Clinical Impression Clinical Impression: Asthma exacerbation - PA / ROLLS BAKER / Resident Statement MD/DO has reviewed & agrees with the documentation as recorded. - Scribe Statement The provider has reviewed the documentation as recorded by the Scribe Khanh Oquendo All medical record entries made by the Scribe were at my direction and personally dictated by me. I have reviewed the chart and agree that the record accurately reflects my personal performance of the history, physical exam, medical decision making, and the department course for this patient. I have also personally directed, reviewed, and agree with the discharge instructions and disposition.
[2017-09-06] MEDS ORDERED: Magnesium Sulfate 1 gm in D5W 2 GM/200 ML BAG IVPB ONE (05:49)
[2017-09-06] MEDS: Magnesium Sulfate 1 gm in D5W 1 GM/100 ML BAG IVPB SCH ×2 (05:53→06:17)
[2017-09-06 06:52] VITALS: BP 125/52; PULSE 130; RESP 32; TEMP 97.7
[2017-09-06 06:58] VITALS: O2SAT 94
== END 2017-09-06 07:06 | disposition home or self-care (01) ==
LOC: C.ER 03:15
DX: O26.893 Other specified pregnancy related conditions, third trimester (principal); J45.901 Unspecified asthma with (acute) exacerbation; Z3A.31 31 weeks gestation of pregnancy
CPT/HCPCS: 94150; 94640; 96365; 96366; 96375; 99285; J2930; J3475